=== PATIENT | female | born 1995 | race American Indian/Alaskan Native ===

== ENCOUNTER 2018-12-26 20:59 | Inpatient (IN) | payer MEDICAID ==
[2018-12-26] MEDS ORDERED: CERVIDIL VG ONE (22:59)
[2018-12-26] MEDS ORDERED: XYLOCAINE 2% INFILTRATI ONE (22:59)
[2018-12-26] MEDS ORDERED: BRETHINE SUB-Q PRN (22:59)
[2018-12-26] MEDS ORDERED: MINERAL OIL PO PRN (22:59)
[2018-12-26] MEDS ORDERED: BRETHINE IVP PRN (22:59)
[2018-12-26] MEDS ORDERED: SUBLIMAZE IV PRN (22:59)
[2018-12-26] MEDS ORDERED: LACTATED RINGERS 1,000 ML IV SCH (23:00)
[2018-12-27] LABS: Hematocrit 34.4 % (30.3-42.9); Hemoglobin 11.5 gm/dl (10.1-14.3); Mean Corpuscular HGB Conc 33 % (30-34); Mean Corpuscular Volume 86 fl (79-97); Platelet Count 325 K/mm3 (140-440)
[2018-12-27] MEDS ORDERED: PITOCin/NS 20 UNIT/1000ML DRIP 20,000 MILLIUNITS/1,000 ML BAG IV ONE (00:23)
[2018-12-27] MEDS ORDERED: PITOCin/NS 20 UNIT/1000ML DRIP 20 UNITS/1,000 ML BAG IV SCH (05:00)
--- NOTE | 2018-12-27 05:04 | History and Physical Report ---
History of Present Illness Date of examination: 12/27/18 Date of admission: 12/26/18 20:59 Chief complaint: Induction of Labor History of present illness: 23yo G 1 P 0 0 0 0 @ 41 weeks 3 days here for a scheduled IOL for postdates. She denies UCs, VB or LOF. She is a [employer] who initiated care at 14 weeks gestation. Her course is complicated by FHx of Autism (co- managed w/APA), exposure to xray in 1st trimester, significant weight loss in 1st trimester and anemia (on iron therapy). 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 (suppressive therapy initiated 11/16/18) - Obstetrical History Expected Date of Delivery: 12/17/18 Actual Gestation: 41 Week(s) 3 Day(s) : 1 Para: 0 Hx # Term Pregnancies: 0 Number of Pregnancies: 0 Spontaneous Abortions: 0 Induced : 0 Number of Living Children: 0 Medications and Allergies Allergies Allergy/AdvReac Type Severity Reaction Status Date / Time No Known Allergies Allergy Unverified 12/26/18 21:27 Active Meds: Active Medications Butorphanol Tartrate (Stadol) 2 mg IV Q2H PRN PRN Reason: Pain , Severe (7-10) Ephedrine Sulfate (Ephedrine Sulfate) 10 mg IV Q2M PRN PRN Reason: Hypotension Fentanyl (Sublimaze) 100 mcg IV Q2H PRN PRN Reason: Labor Pain Lactated Ringer's (Lactated Ringers) 1,000 mls @ 125 mls/hr IV DIRECT ROCHELLE Mineral Oil (Mineral Oil) 30 ml PO QHS PRN PRN Reason: Constipation Terbutaline Sulfate (Brethine) 0.25 mg SUB-Q ONCE PRN PRN Reason: Hyperstimulation/Hypertonicity Terbutaline Sulfate (Brethine) 0.25 mg IVP ONCE PRN PRN Reason: Hyperstimulation/Hypertonicity Review of Systems All systems: negative - Vital Signs Vital signs: Vital Signs Pulse BP 96 H 131/78 12/26/18 21:35 12/26/18 21:35 Temp Pulse Resp BP Pulse Ox 82 129/64 12/27/18 00:16 12/27/18 00:16 - Physical Exam Genitourinary (Female): Positive: normal external genitalia, normal perenium. Negative: perineal/vulvar lesions Vulva: both: normal - Obstetrical FHR: auscultation normal, category 1 FHR comments: baseline 120, moderate variability, 15x15 accels, no decels Uterine Contraction Monitor Mode: External Cervical Dilatation: 1 (per RN) Cervical Effacement Percentage: 25 (per RN) station: -2 (per RN) Uterine Contraction Pattern: Absent Results Result Diagrams: 12/26/18 23:15 Abnormal lab results 12/26/18 Range/Units 23:15 RDW 16.0 H (13.2-15.2) % All other labs normal. Assessment and Plan - Patient Problems (1) 41 weeks gestation of Current Visit: Yes Status: Acute (2) Encounter for induction of labor Current Visit: Yes Status: Acute Plan to address problem: Admit to L&D with routine labor orders Cervidil for cervical ripening Anticipate vaginal delivery
[2018-12-27] MEDS: STADOL IV PRN ×3 (09:42→17:05)
--- NOTE | 2018-12-27 11:14 | Progress Note ---
Assessment and Plan (1) 41 weeks gestation of Current Visit: Yes Status: Acute (2) Induction of labor at term Current Visit: Yes Status: Acute Plan to address problem: Admit to L&D with routine labor orders Cervidil removed; Start pitocin Epidural PRN Anticipate vaginal delivery Subjective - Subjective Date of service: 12/27/18 (11:10) Principal diagnosis: IUP, Postdates, IOL Interval history: See H&P Patient reports: movement normal, contractions (mild), no loss of fluid, no vaginal bleeding Objective - Vital Signs Vital Signs: Vital Signs - 12hr 12/27/18 12/27/18 12/27/18 00:16 06:53 07:22 Temperature Pulse Rate 82 76 75 Respiratory Rate Blood Pressure 129/64 119/70 127/68 12/27/18 12/27/18 12/27/18 07:25 07:30 09:44 Temperature 97.9 F Pulse Rate 79 Respiratory 18 20 Rate Blood Pressure 130/77 - Exam Breasts: normal Cardiovascular: Regular rate, Normal S1, Normal S2, No murmurs Lungs: Clear to auscultation, Normal air movement Abdomen: Present: normal appearance, soft, normal bowel sounds. Absent: distention Vulva: both: normal Uterus: Present: other (gravid) FHR: category 1 Uterine Contraction Monitor Mode: External Cervical Dilatation: 2 (Intact BOW; cervidil removed) Cervical Effacement Percentage: 80 station: -1 Uterine Contraction Pattern: Irregular Uterine Tone Measurement Phase: Resting Uterine Contraction Intensity: Mild Extremities: normal Deep Tendon Reflex Grade: Normal +2 - Labs Labs: Abnormal Labs 12/26/18 23:15 RDW 16.0 H Laboratory Results - last 24 hr 12/26/18 12/26/18 23:15 23:15 WBC 10.0 RBC 4.00 Hgb 11.5 Hct 34.4 MCV 86 MCH 29 MCHC 33 RDW 16.0 H Plt Count 325 Blood Type O POSITIVE Antibody Screen Negative
[2018-12-27] MEDS ORDERED: PITOCin/NS 30 UNIT/500ML 30 UNITS/500 ML BAG IV SCH (12:00)
[2018-12-27] MEDS ORDERED: NARCAN 2 MG/2 ML IV PRN (17:31)
--- NOTE | 2018-12-27 17:32 | Anesthesia Consultation ---
Anesthesia Consult and Med Hx - Airway Anesthetic Teeth Evaluation: Good ROM Head & Neck: Adequate Mental/Hyoid Distance: Adequate Mallampati Class: Class II Intubation Access Assessment: Probably Good - Pulmonary Exam CTA: Yes - Cardiac Exam Cardiac Exam: RRR - Pre-Operative Health Status ASA Pre-Surgery Classification: ASA2 Proposed Anesthetic Plan: Epidural - Pulmonary Hx Smoking: No Hx Asthma: No Hx Respiratory Symptoms: No SOB: No COPD: No Home Oxygen Therapy: No Hx Pneumonia: No Hx Sleep Apnea: No - Cardiovascular System Hx Hypertension: No Hx Coronary Artery Disease: No Hx Heart Attack/AMI: No Hx Angina: No Hx Percutaneous Transluminal Coronary Angioplasty (PTCA): No Hx Cardia Arrhythmia: No Hx Pacemaker: No Hx Internal Defibrillator: No Hx Valvular Heart Disease: No Hx Heart Murmur: No Hx Peripheral Vascular Disease: No - Central Nervous System Hx Neuromuscular Disorder: No Hx Seizures: No CVA: No Hx Back Pain: No Hx Psychiatric Problems: No - Gastrointestinal Hx Ulcer: No Hx Gastroesophageal Reflux Disease: No - Endocrine Hx Renal Disease: No Hx End Stage Renal Disease: No Hx Cirrhosis: No Hx Liver Disease: No Hx Insulin Dependent Diabetes: No Hx Non-Insulin Dependent Diabetes: No Hx Thyroid Disease: No Hx Hypothyroidism: No Hx Hyperthyroidism: No - Hematic Hx Anemia: No Hx Sickle Cell Disease: No - Other Systems Hx Alcohol Use: No Hx Substance Use: No Hx Cancer: No Hx Obesity: No
[2018-12-27] MEDS ORDERED: MARCAINE 0.25% INFILTRATI ONE (17:37)
[2018-12-27] MEDS ORDERED: fentaNYL-BUPIV 2 MCG/ML-0.125% 200 MCG/100 ML BAG EPIDURAL SCH (18:00)
[2018-12-27] MEDS ORDERED: TUCKS PAD TP PRN (19:50)
[2018-12-27] MEDS ORDERED: BENADRYL PO PRN (19:50)
[2018-12-27] MEDS ORDERED: MILK OF MAGNESIA PO PRN (19:50)
[2018-12-27] MEDS ORDERED: PHENERGAN PO PRN (19:50)
[2018-12-27] MEDS ORDERED: TYLENOL PO PRN (19:50)
[2018-12-27] MEDS ORDERED: DULCOLAX PR PRN (19:50)
[2018-12-27] MEDS ORDERED: LANSINOH TP PRN (19:50)
[2018-12-27] MEDS ORDERED: ZOFRAN IV PRN (19:50)
[2018-12-27] MEDS ORDERED: TYLENOL PO ONE (19:53)
[2018-12-27] MEDS ORDERED: SODIUM CHLORIDE FLUSH SYRINGE 10 ML IV NR (20:00)
[2018-12-27] MEDS: FEOSOL PO SCH (21:32)
[2018-12-27] MEDS: IBUPROFEN PO SCH (21:33)
--- NOTE | 2018-12-27 21:35 | Post Anesthesia Evaluation ---
- Post Anesthesia Evaluation Patient Participated: Yes Airway Patent: Yes Stable Respiratory Function: Yes Nausea/Vomiting: No Temp > 96.8F: Yes Pain Manageable: Yes Adequeate Hydration: Yes Anesthesia Complications: No Block Receding Appropriately: Yes Patient on Ventilator: No
--- NOTE | 2018-12-27 21:40 | Procedure Note ---
OB Delivery Note - Delivery Surgeon: ROBERT BELTRAN Estimated blood loss: 100cc - Vaginal Delivery presentation: vertex Delivery position: OA Delivery induction: none Delivery monitor: external FHT Route of delivery: Delivery placenta: spontaneous Episiotomy: none Delivery laceration: none Anesthesia: none Delivery comments: Augmented rupture of membranes to facilitate delivery of head. Membranes ruptured clear. Delivery of fetus, bulb suctioned. Cord cut at perineum due to short umbilical cord. Vigorous, crying placed on maternal abdomen. Perineum intact. Bleeding well controlled. - A at 1 minute: 8 at 5 minutes: 9 (Weight 6lb 7oz 2918g) Gender: Female
[2018-12-28] MEDS: IBUPROFEN PO SCH ×3 (08:30→19:41)
[2018-12-28 08:40] LABS: Hematocrit 28.5 % (30.3-42.9)
[2018-12-28] MEDS: FEOSOL PO SCH ×2 (09:00→21:54)
--- NOTE | 2018-12-28 10:39 | Progress Note ---
Assessment and Plan A: PP Day #1 Asymptomatic Anemia P: Follow Routine Orders FeSO4 325mg PO BID D/C Home in the AM RTO in 6 Weeks Subjective - Subjective Date of service: 12/28/18 Principal diagnosis: IUP, Postdates, IOL Patient reports: appetite normal, voiding normally, pain well controlled, flatus, ambulating normally : doing well, bottle feeding Objective - Vital Signs Latest vital signs: Vital Signs Temp Pulse Resp BP BP Pulse Ox 12/28/18 08:03 98.4 F 89 20 124/74 98 12/28/18 02:25 98.5 F 104 H 20 129/78 97 12/27/18 22:33 16 12/27/18 21:33 18 12/27/18 21:24 98.1 F 98 H 20 121/68 97 12/27/18 20:02 96 H 126/84 12/27/18 19:38 100 H 124/74 12/27/18 19:22 100 H 129/68 12/27/18 19:10 107 H 132/71 12/27/18 19:00 98.1 F 132/71 12/27/18 18:50 97.9 F 18 12/27/18 18:41 110 H 164/68 99 12/27/18 18:39 107 H 146/67 12/27/18 18:37 96 H 136/63 12/27/18 18:36 102 H 100 12/27/18 18:35 113 H 139/82 12/27/18 18:33 106 H 134/69 12/27/18 18:31 95 H 134/71 100 12/27/18 18:28 89 131/84 12/27/18 18:27 96 H 121/78 12/27/18 18:26 92 H 128/60 96 12/27/18 18:24 89 138/66 12/27/18 18:21 89 138/74 99 12/27/18 18:19 93 H 133/61 12/27/18 18:17 90 138/63 12/27/18 18:16 98 H 138/69 99 12/27/18 18:13 93 H 137/81 12/27/18 18:11 93 H 154/76 99 12/27/18 18:09 103 H 145/81 12/27/18 18:07 103 H 152/86 12/27/18 18:06 89 98 12/27/18 18:05 100 H 143/89 12/27/18 18:04 90 155/93 12/27/18 18:02 97 H 94 12/27/18 18:01 117 H 135/73 97 12/27/18 17:59 88 129/72 12/27/18 17:56 85 97 12/27/18 17:53 94 H 94 12/27/18 17:51 88 97 12/27/18 17:47 86 85 12/27/18 17:46 83 98 12/27/18 17:41 77 83 L 12/27/18 17:33 93 H 148/74 12/27/18 17:03 82 135/86 12/27/18 16:32 85 140/81 12/27/18 16:02 77 133/72 12/27/18 15:32 85 131/79 12/27/18 15:03 88 128/87 12/27/18 14:33 78 117/66 12/27/18 14:02 78 121/64 12/27/18 13:33 76 120/66 12/27/18 13:02 82 116/79 Intake and Output 12/27/18 12/28/18 12/28/18 22:59 06:59 14:59 Intake Total 16.800 240 Output Total 700 600 Balance -683.200 -600 240 Intake: IV 16.800 PITOCin/NS 30 UNIT/500ML 16.800 30 units In 500 ml @ 2 mls/hr IV TITR ROCHELLE Rx#: [id number] Intake, Free Water 240 Output: Urine 700 600 Indwelling Catheter 700 600 Other: Total, Output Amount 300 600 # Voids Indwelling Catheter 1 1 Estimated Blood Loss 200 - Exam Breasts: Present: normal Cardiovascular: Present: Regular rate Lungs: Present: Clear to auscultation, Normal air movement Abdomen: Present: normal appearance, soft, normal bowel sounds Uterus: Present: normal, firm, fundal height below umbilicus Extremities: Present: normal - Labs Labs: Abnormal lab results 12/28/18 Range/Units 08:12 Hgb 10.0 L (10.1-14.3) gm/dl Hct 28.5 L (30.3-42.9) %
--- NOTE | 2018-12-28 10:41 | Discharge Summary ---
Providers - Providers Date of Admission: 12/26/18 20:59 Date of discharge: 12/29/18 Attending physician: JAKE MCGEE MD Primary care physician: JAKE MCGEE MD Hospitalization Reason for admission: induction of labor Delivery: Episiotomy: none Laceration: 2nd degree Other procedures: none complications: none Discharge diagnosis: IUP at term delivered [place] baby: male Condition at discharge: Good Disposition: DC-01 TO HOME OR SELFCARE Plan - Provider Discharge Summary Activity: routine, no sex for 6 weeks, no heavy lifting 4 weeks, no strenuous exercise Diet: routine Instructions: routine Additional instructions: [] Smoking cessation referral if applicable(refer to patient education folder for contact #) [] Refer to [facility]'s [facility] Booklet Call your doctor immediately for: * Fever > 100.5 * Heavy vaginal bleeding ( >1 pad per hour) * Severe persistent headache * Shortness of breath * Reddened, hot, painful area to leg or breast * Drainage or odor from incision. * Keep incision clean and dry at all times and follow doctor's instructions regarding bathing/showering - Follow up plan Follow up: JAKE MCGEE MD [Primary Care Provider] - 6 Weeks
[2018-12-29] MEDS: IBUPROFEN PO SCH ×2 (02:56→08:25)
[2018-12-29] MEDS: PERCOCET 5/325 PO PRN ×2 (03:52→09:01)
[2018-12-29] MEDS ORDERED: BOOSTRIX IM ONE (05:30)
[2018-12-29 08:01] VITALS: BP 139/88
[2018-12-29] MEDS: FEOSOL PO SCH (09:01)
== END 2018-12-29 12:10 | disposition home or self-care (01) | DRG 775 ==
LOC: LD 20:59 → OB 12-27 20:54
PROVIDERS: ADMIT Obstetrics & Gynecology; ATTEND Obstetrics & Gynecology
PROC: 10E0XZZ Delivery of Products of Conception, External Approach (ICD-10-PCS; principal; 2018-12-27)
PROC: 0KQM0ZZ Repair Perineum Muscle, Open Approach (ICD-10-PCS; 2018-12-27)
PROC: 3E0234Z Introduction of Serum, Toxoid and Vaccine into Muscle, Percutaneous Approach (ICD-10-PCS; 2018-12-29)
DX: O48.0 Post-term pregnancy (principal); O70.1 Second degree perineal laceration during delivery; O99.02 Anemia complicating childbirth; D64.9 Anemia, unspecified; Z37.0 Single live birth; Z23 Encounter for immunization; Z3A.41 41 weeks gestation of pregnancy
CPT/HCPCS: 36415; 59025; 59200; 85014; 85018; 85027; 86850; 86900; 86901; 90471; 90715; G0378; J0595; J2590; J3010; J7120

== ENCOUNTER 2018-12-30 09:02 | Emergency (ER) | payer MEDICAID ==
[2018-12-30] MEDS ORDERED: NACL 0.9% 1000 ML 1,000 ML IV ONE (09:56)
[2018-12-30] MEDS ORDERED: ZOFRAN IV ONE (09:56)
[2018-12-30] MEDS ORDERED: TORADOL IV ONE (09:56)
[2018-12-30 10:19] LABS: Basophils % (Auto) 0.3 % (0.0-1.8); Eosinophils % (Auto) 0.2 % (0.0-4.3); Hemoglobin 10.6 gm/dl (10.1-14.3); Lymphocytes % (Auto) 12.1 % (13.4-35.0); Mean Corpuscular HGB Conc 33 % (30-34); Mean Corpuscular Volume 87 fl (79-97); Monocytes # (Auto) 0.5 K/mm3 (0.0-0.8); Monocytes % (Auto) 6.8 % (0.0-7.3); Platelet Count 285 K/mm3 (140-440); Red Blood Count 3.69 M/mm3 (3.65-5.03); Red Cell Distribution Width 16.1 % (13.2-15.2)
[2018-12-30 11:07] LABS: BUN/Creatinine Ratio 8; Blood Urea Nitrogen 4 mg/dL (7-17); Calcium 8.9 mg/dL (8.4-10.2); Hemolysis Index 4
--- NOTE | 2018-12-30 11:13 | Emergency Department Report ---
ED Abdominal Pain HPI - General Chief Complaint: Headache Stated Complaint: PAIN IN HEAD/NECK Time Seen by Provider: 12/30/18 09:54 Source: patient Mode of arrival: Ambulatory Limitations: No Limitations - History of Present Illness Initial Comments: Patient is a 23-year-old black female who is 4 days who is presenting with a headache. Patient states that she had a epidural for her vaginal delivery. There were no complications during either the delivery or the epidural. Patient states she's developed a little last 2-3 days progressively worsening headache. This is worse with standing. Patient states that at this point she is having a hard time sitting upright secondary to the headache and is affecting her care for her child. The patient denies any nausea vomiting Stiffness fevers or chills. Severity scale (0 -10): 10 - Related Data Previous Rx's Medication Instructions Recorded Last Taken Type Butalb/Acetamin/Caff 50-325-40 1 tab PO Q6HR PRN #12 tab 12/30/18 Unknown Rx [Fioricet] Allergies Allergy/AdvReac Type Severity Reaction Status Date / Time No Known Allergies Allergy Verified 12/30/18 09:03 ED Review of Systems ROS: Stated complaint: PAIN IN HEAD/NECK Other details as noted in HPI Comment: All other systems reviewed and negative ED Past Medical Hx - Past Medical History Previous Medical History?: No Hx Hypertension: No Hx Heart Attack/AMI: No Hx Congestive Heart Failure: No Hx Diabetes: No Hx Liver Disease: No Hx Renal Disease: No Hx Sickle Cell Disease: No Hx Seizures: No Hx Asthma: No Hx COPD: No - Surgical History Past Surgical History?: No Hx Pacemaker: No Hx Internal Defibrillator: No - Social History Smoking Status: Never Smoker Substance Use Type: None - Medications Home Medications: Home Medications Medication Instructions Recorded Confirmed Last Taken Type Butalb/Acetamin/Caff 50-325-40 1 tab PO Q6HR PRN #12 tab 12/30/18 Unknown Rx [Fioricet] ED Physical Exam - General Limitations: No Limitations General appearance: alert, in no apparent distress - Head Head exam: Present: atraumatic, normocephalic - Eye Eye exam: Present: normal appearance - ENT ENT exam: Present: mucous membranes moist - Neck Neck exam: Present: normal inspection - Respiratory Respiratory exam: Present: normal lung sounds bilaterally. Absent: respiratory distress, wheezes, rales, rhonchi - Cardiovascular Cardiovascular Exam: Present: regular rate, normal rhythm. Absent: systolic murmur, diastolic murmur, rubs, gallop - GI/Abdominal GI/Abdominal exam: Present: soft, normal bowel sounds. Absent: distended, tenderness, guarding, rebound - Extremities Exam Extremities exam: Present: normal inspection - Back Exam Back exam: Present: normal inspection - Neurological Exam Neurological exam: Present: alert, oriented X3 - Psychiatric Psychiatric exam: Present: normal affect, normal mood - Skin Skin exam: Present: warm, dry, intact, normal color. Absent: rash ED Course Vital Signs 12/30/18 12/30/18 12/30/18 09:26 11:15 12:20 Temperature 98.2 F Pulse Rate 83 91 H 85 Respiratory 18 18 18 Rate Blood Pressure 144/93 Blood Pressure 142/91 139/88 [Right] O2 Sat by Pulse 98 99 99 Oximetry ED Medical Decision Making - Lab Data Result diagrams: 12/30/18 10:07 12/30/18 10:07 - Medical Decision Making Anesthesia team did see the patient here in emergency department and performed a blood patch. Please see their note regarding the procedure. After monitoring the patient states her headache is improving. Patient be discharged home. Critical care attestation.: If time is entered above; I have spent that time in minutes in the direct care of this critically ill patient, excluding procedure time. ED Disposition Clinical Impression: Spinal headache Disposition: - TO HOME OR SELFCARE Is pt being admited?: No Does the pt Need Aspirin: No Condition: Stable Instructions: Lumbar Puncture (ED) Prescriptions: Butalb/Acetamin/Caff 50-325-40 [Fioricet] 1 tab PO Q6HR PRN #12 tab PRN Reason: Headache Time of Disposition: 13:10
--- NOTE | 2018-12-30 12:41 | Progress Note ---
Subjective Date of service: 12/30/18 Interval history: 3rd day Complains of headache and neck pain which started the day after epidural placement. Type of pain is consistent with postdural headache. Pt elected to proceed with Blood Patch which was explained to her. Epidural inserted in L3-4, Iv places right Arm under sterile conditions. Injected 15ml of Blood in Epidural space. Pt. headache resolved post procedure, tolerated procedure well with no complications. Objective - Constitutional Vitals: Vital Signs - 12hr 12/30/18 09:26 Temperature 98.2 F Pulse Rate 83 Respiratory 18 Rate Blood Pressure 144/93 O2 Sat by Pulse 98 Oximetry - Labs CBC & Chem 7: 12/30/18 10:07 12/30/18 10:07 Labs: Abnormal lab results 12/30/18 12/30/18 Range/Units 10:07 10:07 RDW 16.1 H (13.2-15.2) % Lymph % (Auto) 12.1 L (13.4-35.0) % Lymph # 1.0 L (1.2-5.4) K/mm3 Seg Neutrophils % 80.6 H (40.0-70.0) % BUN 4 L (7-17) mg/dL Creatinine 0.5 L (0.7-1.2) mg/dL
[2018-12-30 13:00] VITALS: BP 139/88
== END 2018-12-30 13:29 | disposition home or self-care (01) ==
LOC: ED 09:02
DX: O89 Complications of anesthesia during the puerperium (principal)
CPT/HCPCS: 36415; 80048; 85025; 96374; 96375; 99283; J1885; J2405; J7030